=== PATIENT | female | born 1995 | race Native Hawaiian/Other Pacific Islander ===

== ENCOUNTER 2019-06-18 13:18 | Emergency (ER) | payer OTHER ==
[~2019-06-18] VITALS: Ht 152.4 cm; Wt 86.2 kg
[2019-06-18 13:18] VITALS: TEMP 97.7
[2019-06-18] MEDS ORDERED: RANI150T78 PO (15:15)
[2019-06-18 15:43] LABS: PLATELET COUNT 243 K/uL (152-353)
[2019-06-18 15:45] LABS: POTASSIUM 3.5 mmol/L (3.6-5.2); SODIUM 141 mmol/L (136-145)
[2019-06-18 16:43] VITALS: BP 107/63
== END 2019-06-18 16:43 | disposition home or self-care (01) ==
LOC: ED 13:18
PROVIDERS: Student in an Organized Health Care Education/Training Program
DX: K80.20 Calculus of gallbladder without cholecystitis without obstruction (principal); Z98.890 Other specified postprocedural states
CPT/HCPCS: 80053; 81000; 81025; 83690; 83735; 84484; 85027; 85610; 85730; 93005; 96374; 96375; 99284; J1885; J2405

== ENCOUNTER 2019-10-06 01:29 | Emergency (ER) | payer OTHER ==
[~2019-10-06] VITALS: Ht 152.4 cm; Wt 86.2 kg
[~2019-10-06 01:29] MED LIST: RANI150T78 PO
[2019-10-06 03:20] VITALS: BP 118/64; TEMP 99.1
== END 2019-10-06 03:20 | disposition home or self-care (01) ==
LOC: ED 01:29
DX: J11.1 Influenza due to unidentified influenza virus with other respiratory manifestations (principal)
CPT/HCPCS: 87502; 87651; 99283